=== PATIENT | female | born 1980 | race Caucasian/White ===

== ENCOUNTER 2017-02-17 15:41 | Emergency (ER) | payer BC ==
[2017-02-17 15:49] VITALS: BP 144/92; PULSE 77; RESP 18; TEMP 97.8
--- NOTE | 2017-02-17 16:02 | ED ---
General Adult HPI - General Chief complaint: Dental/Oral Stated complaint: ENT Time Seen by Provider: 02/17/17 15:57 Source: patient, RN notes reviewed Mode of arrival: ambulatory Limitations: no limitations - History of Present Illness Initial comments: Patient 36-year-old female who presents emergency room today with a chief complaint of increased swelling and pain to right lower jaw. She does admit to a bad tooth. States she seemed dentist in the past. States dentist is currently out of town. States she was on antibiotics several weeks ago. She states she been having increased pain that she started yesterday. Denies any other complaints or symptoms at this time. Patient denies any recent fever, chills, shortness of breath, chest pain, back pain, abdominal pain, nausea or vomiting, numbness or tingling, dysuria or hematuria, constipation or diarrhea, headaches or visual changes, or any other complaints. - Related Data Previous Rx's Medication Instructions Recorded Hydrocodone/Acetaminophen [[place] 1 each PO Q6HR PRN #10 tab 02/17/17 5-325] Penicillin V Potassium [Pen Vee K] 500 mg PO QID 10 Days 02/17/17 Allergies Allergy/AdvReac Type Severity Reaction Status Date / Time No Known Allergies Allergy Verified 02/17/17 15:50 Review of Systems ROS Statement: Those systems with pertinent positive or pertinent negative responses have been documented in the HPI. ROS Other: All systems not noted in ROS Statement are negative. Past Medical History Past Medical History: No Reported History History of Any Multi-Drug Resistant Organisms: None Reported Past Surgical History: Cholecystectomy, Hysterectomy Additional Past Surgical History / Comment(s): hand surgery Past Psychological History: No Psychological Hx Reported Smoking Status: Current every day smoker Past Alcohol Use History: None Reported Past Drug Use History: None Reported General Exam - General Exam Comments Initial Comments: General: The patient is awake and alert, in no distress, and does not appear acutely ill. Eye: Pupils are equal, round and reactive to light, extra-ocular movements are intact. No nystagmus. There is normal conjunctiva bilaterally. No signs of icterus. Ears, nose, mouth and throat: There are moist mucous membranes and no oral lesions. Uvula midline. Patient's also difficulty. Mild swelling to the right side of the lower jaw. Locally tender over the gumline right lower jaw between teeth #28 and 29. No obvious abscess to drain. Neck: The neck is supple, there is no tenderness or JVD. Cardiovascular: There is a regular rate and rhythm. No murmur, rub or gallop is appreciated. Respiratory: Lungs are clear to auscultation, respirations are non-labored, breath sounds are equal. No wheezes, stridor, rales, or rhonchi. Musculoskeletal: Normal ROM, no tenderness. Strength 5/5. Sensation intact. Pulses equal bilaterally 2+. Neurological: A&O x 3. CN II-XII intact, There are no obvious motor or sensory deficits. Coordination appears grossly intact. Speech is normal. Skin: Skin is warm and dry and no rashes or lesions are noted. Psychiatric: Cooperative, appropriate mood & affect, normal judgment. Limitations: no limitations Course Vital Signs 02/17/17 15:47 Temperature 97.8 F Pulse Rate 77 Respiratory 18 Rate Blood Pressure 144/92 O2 Sat by Pulse 99 Oximetry Medical Decision Making - Medical Decision Making Patient will be started on antibiotics given a short prescription of pain medication use and advised to follow-up with her dentist over the next 2 days. Disposition Clinical Impression: Dental abscess Disposition: HOME SELF-CARE Condition: Good Instructions: Dental Abscess (ED) Additional Instructions: Please continue Listerine gargles or salt water gargles as discussed. Please use antibiotic as prescribed and pain medication as needed. Please be aware that pain medication may make you drowsy. Please return to emergency room for any other concerns. Prescriptions: Hydrocodone/Acetaminophen [[place] 5-325] 1 each PO Q6HR PRN #10 tab PRN Reason: Pain Penicillin V Potassium [Pen Vee K] 500 mg PO QID 10 Days Time of Disposition: 16:01
== END 2017-02-17 16:05 | disposition home or self-care (01) ==
LOC: EC 15:41
DX: K04.7 Periapical abscess without sinus (principal); F17.200 Nicotine dependence, unspecified, uncomplicated
CPT/HCPCS: 99283

== ENCOUNTER 2017-06-02 12:50 | Emergency (ER) | payer BC ==
[2017-06-02] MEDS ORDERED: SODIUM CHLORIDE 0.9% 1,000 ML IV ONE (14:10)
[2017-06-02] MEDS ORDERED: KETOROLAC 30 MG/ML 1 ML VIAL IVP STA (14:10)
[2017-06-02] MEDS ORDERED: ONDANSETRON 4 MG/2 ML VIAL IVP STA (14:10)
--- NOTE | 2017-06-02 14:17 | ED ---
General Adult HPI - General Chief complaint: Abdominal Pain Stated complaint: Abd Pain Source: patient Mode of arrival: ambulatory Limitations: no limitations - History of Present Illness Initial comments: 36-year-old female with past medical history of kidney stones and cholecystectomy as well as incomplete hysterectomy presented for evaluation of right lower quadrant abdominal/pelvic pain. She states her symptoms started Friday and initially were in her right back/flank inconsistent with her previous kidney stones. Over the weekend her pain worsened and then migrated anteriorly to the abdomen. There is associated nausea without vomiting. There were no alleviating factors and her pain was exacerbated by palpation. She states she still has her right ovary and she had previously had ovarian cyst on the left but this feels nothing similar. She also states dysuria and increased urinary frequency but decreased volumes. She denies hematuria. - Related Data Home Medications Medication Instructions Recorded Confirmed Baclofen [Lioresal] 20 mg PO HS 06/02/17 06/02/17 Previous Rx's Medication Instructions Recorded HYDROcodone/APAP 5-325MG [[place] 1 - 2 tab PO Q6HR PRN #20 tab 06/02/17 5-325] Ondansetron HCl [Zofran] 4 mg PO Q8HR PRN #10 tablet 06/02/17 Allergies Allergy/AdvReac Type Severity Reaction Status Date / Time No Known Allergies Allergy Verified 06/02/17 13:29 Review of Systems ROS Statement: Those systems with pertinent positive or pertinent negative responses have been documented in the HPI. ROS Other: All systems not noted in ROS Statement are negative. Constitutional: Denies: fever, chills Eyes: Denies: eye pain, eye discharge, vision change ENT: Denies: ear pain, throat pain Respiratory: Denies: cough, dyspnea Cardiovascular: Denies: chest pain, palpitations Endocrine: Denies: fatigue, polydipsia, polyuria Gastrointestinal: Reports: abdominal pain, nausea. Denies: vomiting, diarrhea, constipation, hematemesis, melena Genitourinary: Reports: urgency, dysuria, frequency. Denies: hematuria, discharge, abnormal menses, dyspareunia Musculoskeletal: Reports: back pain, other (right flank pain). Denies: arthralgia, myalgia Skin: Denies: rash, lesions Neurological: Denies: headache, weakness Psychiatric: Denies: anxiety, depression Hematological/Lymphatic: Denies: easy bleeding, easy bruising Past Medical History Past Medical History: No Reported History History of Any Multi-Drug Resistant Organisms: None Reported Past Surgical History: Cholecystectomy, Hysterectomy Additional Past Surgical History / Comment(s): hand surgery Past Psychological History: No Psychological Hx Reported Smoking Status: Current every day smoker Past Alcohol Use History: None Reported Past Drug Use History: None Reported General Exam Limitations: no limitations General appearance: alert, in no apparent distress Head exam: Present: atraumatic, normocephalic, normal inspection Eye exam: Present: normal appearance, PERRL, EOMI. Absent: scleral icterus, conjunctival injection, periorbital swelling ENT exam: Present: normal exam, mucous membranes moist Neck exam: Present: normal inspection. Absent: tenderness, meningismus, lymphadenopathy Respiratory exam: Present: normal lung sounds bilaterally. Absent: respiratory distress, wheezes, rales, rhonchi, stridor Cardiovascular Exam: Present: regular rate, normal rhythm, normal heart sounds. Absent: systolic murmur, diastolic murmur, rubs, gallop, clicks GI/Abdominal exam: Present: soft, tenderness (RLQ), normal bowel sounds. Absent : distended, guarding, rebound, rigid Rectal exam: Present: deferred Extremities exam: Present: normal inspection, full ROM, normal capillary refill. Absent: tenderness, pedal edema, joint swelling, calf tenderness Back exam: Present: normal inspection Neurological exam: Present: alert, oriented X3, CN II-XII intact Psychiatric exam: Present: normal affect, normal mood Skin exam: Present: warm, dry, intact, normal color. Absent: rash Course Vital Signs 06/02/17 06/02/17 13:27 18:36 Temperature 97.5 F L 97.6 F Pulse Rate 77 78 Respiratory 18 16 Rate Blood Pressure 133/82 128/63 O2 Sat by Pulse 100 99 Oximetry Medical Decision Making - Medical Decision Making 36-year-old female with past medical history of kidney stones and hysterectomy with left oophorectomy presented for evaluation of right lower quadrant abdominal pain. Initial presentation on Friday with more consistent with her history of kidney stones however the pain migrated anteriorly to the abdomen and she states this has not happened before sending her previous medical conditions. On physical examination the patient appears to be in no apparent distress however she does have right lower quadrant tenderness. Abdomen is soft and without peritoneal signs of guarding, rigidity, or rebound. There is no CVA tenderness bilaterally. Concern for kidney stone and will obtain labs, CT renal stone, and provide pain control and Zofran. Labs revealed a mild leukocytosis however the remainder were without significant abnormality. CT renal stone showed no uropathy however there was an abnormal right ovarian or adnexal mass measuring 7.5 cm. Recommended ultrasound for rule out of ovarian torsion. Pelvic ultrasound showed a multi segmented cystic mass in the region of the right ovary that measures 7.5 x 3.6 x 5.3 cm. There is normal arterial wave form in the right ovarian artery and there is no evidence of torsion. The patient was reevaluated and had some improvement in her symptoms. She was informed of all results and through shared decision making it was determined that she would be discharged with instructions to follow-up with her primary care physician but to return to this facility if her symptoms should worsen or persist. The patient acknowledged an understanding of this information and agreed with this plan of care. - Lab Data Result diagrams: 06/02/17 14:25 06/02/17 14:25 Lab Results 06/02/17 06/02/17 06/02/17 Range/Units 14:25 14:25 14:25 WBC 12.4 H (3.8-10.6) k/uL RBC 5.00 (3.80-5.40) m/uL Hgb 14.9 (11.4-16.0) gm/dL Hct 44.2 (34.0-46.0) % MCV 88.5 (80.0-100.0) fL MCH 29.9 (25.0-35.0) pg MCHC 33.7 (31.0-37.0) g/dL RDW 14.6 (11.5-15.5) % Plt Count 243 (150-450) k/uL Neutrophils % 69 % Lymphocytes % 20 % Monocytes % 6 % Eosinophils % 4 % Basophils % 1 % Neutrophils # 8.5 H (1.3-7.7) k/uL Lymphocytes # 2.5 (1.0-4.8) k/uL Monocytes # 0.7 (0-1.0) k/uL Eosinophils # 0.4 (0-0.7) k/uL Basophils # 0.1 (0-0.2) k/uL Sodium 137 (137-145) mmol/L Potassium 4.1 (3.5-5.1) mmol/L Chloride 108 H (98-107) mmol/L Carbon Dioxide 21 L (22-30) mmol/L Anion Gap 8 mmol/L BUN 7 (7-17) mg/dL Creatinine 0.58 (0.52-1.04) mg/dL Est GFR (MDRD) Af Amer >60 (>60 ml/min/1.73 sqM) Est GFR (MDRD) Non-Af >60 (>60 ml/min/1.73 sqM) Glucose 101 H (74-99) mg/dL Calcium 8.9 (8.4-10.2) mg/dL Urine Color Yellow Urine Appearance Cloudy H (Clear) Urine pH 6.5 (5.0-8.0) Ur Specific [place] 1.008 (1.001-1.035) Urine Protein Negative (Negative) Urine Glucose (UA) Negative (Negative) Urine Ketones Negative (Negative) Urine Blood Negative (Negative) Urine Nitrite Negative (Negative) Urine Bilirubin Negative (Negative) Urine Urobilinogen <2.0 (<2.0) mg/dL Ur Leukocyte Esterase Negative (Negative) Urine RBC <1 (0-5) /hpf Urine WBC <1 (0-5) /hpf Ur Squamous Epith Cells 4 (0-4) /hpf Urine Bacteria Rare H (None) /hpf Urine Mucus Rare H (None) /hpf Disposition Clinical Impression: Ovarian cyst, Abdominal pain Disposition: HOME SELF-CARE Condition: Stable Instructions: Ovarian Cyst (ED) Additional Instructions: Please use medication as discussed. Please follow up with family doctor if symptoms have not improved over the next two days. Please return to the emergency room if your symptoms increase or worsen or for any other concerns. Prescriptions: HYDROcodone/APAP 5-325MG [[place] 5-325] 1 - 2 tab PO Q6HR PRN #20 tab PRN Reason: Analgesia Ondansetron HCl [Zofran] 4 mg PO Q8HR PRN #10 tablet PRN Reason: Nausea Referrals: Kirsh Moeller MD [STAFF PHYSICIAN] - 1-2 days Ghislaine France MD [STAFF PHYSICIAN] - 1-2 days Marisol Carrillo DO [Doctor of Osteopathic Medicine] - 1-2 days Time of Disposition: 18:22
[2017-06-02 14:44] LABS: Basophils # (A) 0.1 k/uL (0-0.2); Basophils % (A) 1 %; CH 30.6; CHCM 34.8; Eosinophils # (A) 0.4 k/uL (0-0.7); Eosinophils % (A) 4 %; HCT 44.2 % (34.0-46.0); HDW 2.41; HGB 14.9 gm/dL (11.4-16.0); Luc # (Auto) 0.15; Luc % (Auto) 1; Lymphocytes # (A) 2.5 k/uL (1.0-4.8); Lymphocytes % (A) 20 %; MCH 29.9 pg (25.0-35.0); MCHC 33.7 g/dL (31.0-37.0); MCV 88.5 fL (80.0-100.0); Mean Platelet Volume 8.7; Monocytes # (A) 0.7 k/uL (0-1.0); Monocytes % (A) 6 %; Neutrophils # (A) 8.5 k/uL (1.3-7.7); Neutrophils % (A) 69 %; RDW 14.6 % (11.5-15.5); WBC 12.4 k/uL (3.8-10.6); WBC (Perox) 11.83
[2017-06-02 14:50] LABS: Appearance,Urine Cloudy (Clear); Bacteria,Urine Rare /hpf; Bilirubin,Urine Negative (Negative); Glucose,Urine (UA) Negative (Negative); Ketones,Urine Negative (Negative); Leukocyte Esterase,Urine Negative (Negative); Mucus,Urine Rare /hpf; Nitrite,Urine Negative (Negative); PH, Urine 6.5 (5.0-8.0); Particle Count 2677; Protein,Urine Negative (Negative); RBC,Urine <1 /hpf (0-5); Specific Gravity,Urine 1.008 (1.001-1.035); Squamous Epithelial Cell,Urine 4 /hpf (0-4); UA Billing (MACRO vs. MICRO) MICRO; Urobilinogen,Urine <2.0 mg/dL (<2.0); WBC,Urine <1 /hpf (0-5)
[2017-06-02 14:52] LABS: Anion Gap 8 mmol/L; Blood Urea Nitrogen 7 mg/dL (7-17); Calcium 8.9 mg/dL (8.4-10.2); Carbon Dioxide 21 mmol/L (22-30); Chloride 108 mmol/L (98-107); Glucose 101 mg/dL (74-99); Non-African American GFR(MDRD) >60 (>60 ml/min/1.73 sqM); Potassium 4.1 mmol/L (3.5-5.1); Sodium 137 mmol/L (137-145)
--- NOTE | 2017-06-02 15:46 | CT ---
EXAMINATION TYPE: CT renal stones wo con DATE OF EXAM: 06/02/2017 HISTORY: Right lower quadrant pain. CT DLP: 845.90 mGycm. Automated Exposure Control for Dose Reduction was Utilized. TECHNIQUE: CT scan of the abdomen and pelvis is performed without oral or IV contrast. COMPARISON: NONE FINDINGS: Within the limitations of a non-contrast study, the following observations are made. LUNG BASES: No significant abnormality is appreciated. LIVER/GB: Liver is diffusely low dense consistent with fatty infiltration. Cholecystectomy clips are noted. PANCREAS: No significant abnormality is seen. SPLEEN: No significant abnormality is seen. ADRENALS: No significant abnormality is seen. KIDNEYS: No renal stones or hydronephrosis is evident bilaterally. BOWEL: Appendix is not suspiciously enlarged extending inferiorly from base of cecum. There is trace free fluid in the right infracolic gutter of uncertain etiology on coronal image 51. No significant s urrounding inflammatory change is present. Evaluation bowel is slightly suboptimal secondary to lack of enteric contrast. There is no suspicious small or large bowel dilatation seen. There are occasiona l colonic diverticula identified. There is 1.6 cm diverticulum along mesenteric medial surface and se cond portion of duodenum on axial image 51. GENITAL ORGANS: Uterus is surgically absent or markedly atrophic in appearance. There is abnormal rig ht ovarian or adnexal low dense with mild surrounding fat stranding anteriorly mass measuring 7.5 x 4 .3 cm on axial image 112. Normal-sized remnant left ovary is seen on axial image 109 anterior to exte rnal iliac vessels. LYMPH NODES: No greater than 1cm abdominal or pelvic lymph nodes are appreciated. OSSEOUS STRUCTURES: No significant abnormality is seen. OTHER: No significant additional abnormality is seen. IMPRESSION: 1. No renal stones or hydronephrosis is seen bilaterally. 2. Abnormal right ovarian or adnexal 7.5 cm mass in patient with pain, ovarian torsion needs to BE co nsidered as there is some adjacent fat stranding noted anteriorly. Clinical correlation and pelvic ul trasound follow-up is advised.
[2017-06-02] MEDS ORDERED: MORPHINE SULFATE 4 MG/ML SYRINGE IVP STA (16:22)
--- NOTE | 2017-06-02 17:56 | US ---
EXAMINATION TYPE: US pelvis complete transvag DATE OF EXAM: 06/02/2017 COMPARISON: NONE CLINICAL HISTORY: Pain / ro torsion. RLQ PAIN TECHNIQUE: Transvaginal (TV) and Transabdominal (TA) Date of LMP: 2012 EXAM MEASUREMENTS: Uterus: Surgically absent cm Endometrial Stripe: Surgically absent cm Right Ovary: 7.7 X 5.5 X 4.6 cm Left Ovary: Surgically absent cm PARTIAL HYSTERECTOMY 2012 1. Uterus: SURGICALLY ABSENT 2. Endometrium: Surgically absent 3. Right Ovary: ANECHOIC AREA VISUALZED WITH A SEPTATION MEASURING 7.5 X 5.3 X 3.6 CM 4. Left Ovary: Surgically absent Spectral, color and waveform doppler imaging shows good arterial and venous flow within the RIGHT O VARY; there is no evidence for ovarian torsion. 5. Bilateral Adnexa: wnl 6. Posterior cul-de-sac: wnl IMPRESSION: There is a multiseptated cystic mass in the region of the right ovary that measures 7.5 x 3.6 x 5.3 cm. There is normal arterial waveform in the right ovarian artery. There is no evidence of torsion. No free fluid.
[2017-06-02 18:37] VITALS: BP 128/63; PULSE 78; RESP 16; TEMP 97.6
== END 2017-06-02 18:36 | disposition home or self-care (01) ==
LOC: EC 12:50
DX: N83.201 Unspecified ovarian cyst, right side (principal); R11.0 Nausea; F17.200 Nicotine dependence, unspecified, uncomplicated; Z90.49 Acquired absence of other specified parts of digestive tract; Z90.711 Acquired absence of uterus with remaining cervical stump; Z90.721 Acquired absence of ovaries, unilateral; Z79.1 Long term (current) use of non-steroidal anti-inflammatories (NSAID)
CPT/HCPCS: 99284; 96374; 96375 ×2; 96361 ×4; 36415; 80048; 85025; 81001; 76856; 74150; J2270; J2405; J1885; 76830

== ENCOUNTER 2022-06-27 12:03 | Day surgery (SDC) | payer BC, OTHER ==
[2022-06-26 13:28] VITALS: BMI 28.5
[~2022-06-27 12:03] MED LIST: SODIUM CHLORIDE 0.9% 1,000 ML IV SCH
[2022-06-27] MEDS ORDERED: SODIUM CHLORIDE 0.9% 500 ML 500 ML IV ONE (12:40)
[2022-06-27 12:43] VITALS: BP 138/80; PULSE 72; RESP 16; TEMP 98.6
--- NOTE | 2022-07-01 15:51 | P.EPPROC ---
- EP Procedure Note Electrophysiology Procedure Note: Diagnosis Recurrent presyncope Twelve-lead EKG Sinus mechanism normal HI narrow QRS normal ST segments Normal QT interval No epsilon waves no delta waves Tilt table test Baseline blood pressure 133/74 mmHg pulse rate 75 beats a minute Patient was tilted upright at an angle of 70 per protocol As she was tilted upright she reported dizziness which resolved quickly There was an immediate drop in blood pressure 115/68 mmHg but it normalized once again and thereafter her blood pressure remained stable She did have nausea intermittently but there washeart rate or blood pressure change 2 is the end of the procedure she felt very heart for a few seconds and felt a little lightheaded but once again without any change in heart rate blood pressure She was then laid supine at the end of the procedure Impression Normal twelve-lead EKG Immediate drop in blood pressure upon assuming upright position with rapid recovery and no syncope No evidence for neurocardiogenic syncope
== END 2022-06-27 14:40 | disposition home or self-care (01) ==
LOC: CATHEP 12:03
PROVIDERS: ATTEND Internal Medicine Clinical Cardiac Electrophysiology
DX: R55 Syncope and collapse (principal); Z20.822 Contact with and (suspected) exposure to COVID-19; Z87.891 Personal history of nicotine dependence
CPT/HCPCS: 87635; 93660

== ENCOUNTER 2022-10-18 10:50 | Emergency (ER) | payer OTHER ==
[2022-10-18 11:04] VITALS: TEMP 98.7
--- NOTE | 2022-10-18 11:15 | ED ---
General Adult HPI - General Chief complaint: Upper Respiratory Infection Stated complaint: URI Time Seen by Provider: 10/18/22 11:05 Source: patient, RN notes reviewed Mode of arrival: ambulatory Limitations: no limitations - History of Present Illness Initial comments: 42-year-old female with no significant past medical history coming in to the emergency department with chief complaint of cough x 5 days. She notes accompanying symptoms of fever, chills, headache. He has been taking at home breathing treatments with mild relief. she admits to recent known RSV exposure. She is not vaccinated against COVID-19. His chest pain, palpitations, shortness of breath, abdominal pain, nausea, vomiting, diarrhea - Related Data Home Medications Medication Instructions Recorded Confirmed No Known Home Medications 06/26/22 06/26/22 Allergies Allergy/AdvReac Type Severity Reaction Status Date / Time No Known Allergies Allergy Verified 10/18/22 11:04 Review of Systems ROS Statement: Those systems with pertinent positive or pertinent negative responses have been documented in the HPI. ROS Other: All systems not noted in ROS Statement are negative. Past Medical History Past Medical History: Sleep Apnea/CPAP/BIPAP Additional Past Medical History / Comment(s): MIGRAINE HEADACHES, SEE DR STOVALL'S HISTORY AND PHYSICAL FOR CARDIAC HISTORY, History of Any Multi-Drug Resistant Organisms: None Reported Past Surgical History: Section, Cholecystectomy, Hysterectomy Additional Past Surgical History / Comment(s): BILATERAL -hand surgery C SECTION X6 Past Anesthesia/Blood Transfusion Reactions: No Reported Reaction Past Psychological History: Anxiety Smoking Status: Former smoker Past Alcohol Use History: None Reported Past Drug Use History: Marijuana - Past Family History Mother Family Medical History: Cancer Father Family Medical History: Cancer General Exam Limitations: no limitations General appearance: alert, in no apparent distress Head exam: Present: atraumatic, normocephalic, normal inspection Eye exam: Present: normal appearance, PERRL, EOMI. Absent: scleral icterus, conjunctival injection, periorbital swelling ENT exam: Present: normal exam, mucous membranes moist Neck exam: Present: normal inspection. Absent: tenderness, meningismus, lymphadenopathy Respiratory exam: Present: normal lung sounds bilaterally. Absent: respiratory distress, wheezes, rales, rhonchi, stridor Cardiovascular Exam: Present: regular rate, normal rhythm, normal heart sounds. Absent: systolic murmur, diastolic murmur, rubs, gallop, clicks GI/Abdominal exam: Present: soft, normal bowel sounds. Absent: distended, tenderness, guarding, rebound, rigid Extremities exam: Present: normal inspection, full ROM, normal capillary refill. Absent: tenderness, pedal edema, joint swelling, calf tenderness Back exam: Present: normal inspection Neurological exam: Present: alert, oriented X3, CN II-XII intact Psychiatric exam: Present: normal affect, normal mood Skin exam: Present: warm, dry, intact, normal color. Absent: rash Course Vital Signs 10/18/22 10/18/22 10/18/22 11:01 11:52 12:30 Temperature 98.7 F Pulse Rate 91 92 90 Respiratory 20 20 18 Rate Blood Pressure 152/88 147/84 O2 Sat by Pulse 97 97 96 Oximetry Medical Decision Making - Medical Decision Making 82-year-old female presenting to the emergency department for cough. Patient was seen and evaluated physical exam essentially unremarkable. RSV results positive. I Interpreted the following: For any consolidation or effusion. Discussed in detail the results with the patient return precautions discussed. Patient is agreeable to plan for discharge. I discussed the case with Dr. Matute, ECP agrees with plan for discharge - Lab Data Lab Results 10/18/22 Range/Units 11:05 Influenza Type A (PCR) Not Detected (Not Detectd) Influenza Type B (PCR) Not Detected (Not Detectd) RSV (PCR) Detected A (Not Detectd) SARS-CoV-2 (PCR) Not Detected (Not Detectd) Disposition Clinical Impression: RSV infection Disposition: HOME SELF-CARE Condition: Stable Instructions (If sedation given, give patient instructions): Upper Respiratory Infection (ED) Additional Instructions: He is attentive to the nearest emergency department if symptoms of cough or worsening shortness of breath. Is patient prescribed a controlled substance at d/c from ED?: No Referrals: Mia Ibarra MD [Primary Care Provider] - 1-2 days
--- NOTE | 2022-10-18 11:40 | XR ---
EXAMINATION TYPE: XR chest 2V DATE OF EXAM: 10/18/2022 COMPARISON: NONE HISTORY: Cough. TECHNIQUE: Frontal and lateral views of the chest are obtained. FINDINGS: There is no suspicious peripheral focal air space opacity, pleural effusion, or pneumothor ax seen. The cardiac silhouette size is within normal limits. The osseous structures are intact. C holecystectomy clips are seen. IMPRESSION: No acute pulmonary process.
[2022-10-18 12:31] VITALS: BP 147/84; PULSE 90; RESP 18
== END 2022-10-18 12:31 | disposition home or self-care (01) ==
LOC: EC 10:50
DX: R05.9 Cough, unspecified (principal); B97.4 Respiratory syncytial virus as the cause of diseases classified elsewhere; G47.30 Sleep apnea, unspecified; F41.9 Anxiety disorder, unspecified; F12.90 Cannabis use, unspecified, uncomplicated; Z87.891 Personal history of nicotine dependence; Z20.822 Contact with and (suspected) exposure to COVID-19
CPT/HCPCS: 71046; 87636; 99283

== ENCOUNTER 2025-05-21 17:06 | Emergency (ER) | payer OTHER ==
[2025-05-21 17:10] VITALS: TEMP 98.2
--- NOTE | 2025-05-21 17:19 | ED ---
Anxiety HPI - General Chief Complaint: Anxiety Stated Complaint: Chest pain Time Seen by Provider: 05/21/25 17:12 Source: patient, EMS, RN notes reviewed Mode of arrival: EMS Limitations: no limitations - History of Present Illness Initial Comments: 44-year-old female presents emergency department with chief complaint of palpitations anxiety. Patient was in the emergency ferment with her daughter who was patient of cardiac arrest. Patient states she feels very worked up, short of breath states she feels like she is, pass out. She has no known drug allergies no current medications. - Related Data Home Medications: Previous Rx's Medication Instructions Recorded LORazepam [Ativan] 1 mg PO TID 3 Days #9 tab 05/21/25 Allergies/Adverse Reactions: Allergies Allergy/AdvReac Type Severity Reaction Status Date / Time No Known Allergies Allergy Verified 05/21/25 17:10 Review of Systems ROS Statement: Those systems with pertinent positive or pertinent negative responses have been documented in the HPI. ROS Other: All systems not noted in ROS Statement are negative. Past Medical History Past Medical History: Sleep Apnea/CPAP/BIPAP Additional Past Medical History / Comment(s): MIGRAINE HEADACHES, SEE DR STOVALL'S HISTORY AND PHYSICAL FOR CARDIAC HISTORY, History of Any Multi-Drug Resistant Organisms: None Reported Past Surgical History: Section, Cholecystectomy, Hysterectomy Additional Past Surgical History / Comment(s): BILATERAL -hand surgery C SECTION X6 Past Anesthesia/Blood Transfusion Reactions: No Reported Reaction Past Psychological History: Anxiety Smoking Status: Former smoker Past Alcohol Use History: None Reported Past Drug Use History: Marijuana - Past Family History Mother Family Medical History: Cancer Father Family Medical History: Cancer General Exam Limitations: no limitations General appearance: alert, in no apparent distress, anxious Head exam: Present: atraumatic, normocephalic, normal inspection Eye exam: Present: normal appearance, PERRL, EOMI. Absent: scleral icterus, conjunctival injection, periorbital swelling ENT exam: Present: normal exam, mucous membranes moist Neck exam: Present: normal inspection, full ROM. Absent: tenderness, meningismus, lymphadenopathy Respiratory exam: Present: normal lung sounds bilaterally. Absent: respiratory distress, wheezes, rales, rhonchi, stridor Cardiovascular Exam: Present: regular rate, normal rhythm, normal heart sounds. Absent: systolic murmur, diastolic murmur, rubs, gallop, clicks Neurological exam: Present: alert, oriented X3, CN II-XII intact Psychiatric exam: Present: anxious Course Vital Signs 05/21/25 17:08 Temperature 98.2 F Pulse Rate 93 Respiratory 24 Rate Blood Pressure 138/91 O2 Sat by Pulse 98 Oximetry Medical Decision Making - Medical Decision Making Was pt. sent in by a medical professional or institution (, [facility]RI[facility], DISULFURIZER TENDER, urgent c are, hospital, or jail...) When possible be specific @ -No Did you speak to anyone other than the patient for history (EMS, parent, family, police, friend...)? What history was obtained from this source @ -No Did you review nursing and triage notes (agree or disagree)? Why? @ -I reviewed and agree with nursing and triage notes Were old charts reviewed (outside hosp., previous admission, EMS record, old EKG, old radiological studies, urgent care reports/EKG's, jail records)? Report findings @ -No old charts were reviewed Differential Diagnosis (chest pain, altered mental status, abdominal pain women, abdominal pain men, vaginal bleeding, weakness, fever, dyspnea, syncope, headache, dizziness, GI bleed, back pain, seizure, CVA, palpatations, mental health, musculoskeletal)? @ -Differential Palpitations Ventricular arrhythmias, atrial arrhythmias, myocardial infarction, anemia, thyrotoxicosis, electrolyte imbalance, hypokalemia, pulmonary embolism, pulmonary disease, drugs, alcohol, anxiety, stress.... This is not meant to be an all-inclusive list. EKG interpreted by me (3pts min.). @ -As above X-rays interpreted by me (1pt min.). @ -None done CT interpreted by me (1pt min.). @ -None done U/S interpreted by me (1pt. min.). @ -None done What testing was considered but not performed or refused? (CT, X-rays, U/S, labs)? Why? @ -None What meds were considered but not given or refused? Why? @ -None Did you discuss the management of the patient with other professionals (professionals i.e. BRIAN Wolff, DISULFURIZER TENDER, lab, RT, psych nurse, executive secretary social welfare, earthmoving labourer, teacher, army senior officer, case therapist)? Give summary @ -No Was smoking cessation discussed for >3mins.? @ -No Was critical care preformed (if so, how long)? @ -No Were there social determinants of health that impacted care today? How? (Homelessness, low income, unemployed, alcoholism, drug addiction, transportation, low edu. Level, literacy, decrease access to med. care, intermediate, rehab)? @ -No Was there de-escalation of care discussed even if they declined (Discuss DNR or withdrawal of care, Hospice)? DNR status @ -No What co-morbidities impacted this encounter? (DM, HTN, Smoking, COPD, CAD, Cancer, CVA, ARF, Chemo, Hep., AIDS, mental health diagnosis, sleep apnea, morbid obesity)? @ -None Was patient admitted / discharged? Hospital course, mention meds given and route, prescriptions, significant lab abnormalities, going to OR and other pertinent info. @ -Discharge patient presented for severe anxiety related to of her child. Patient is not suicidal homicidal. Patient discharged in stable condition Undiagnosed new problem with uncertain prognosis? @ -No Drug Therapy requiring intensive monitoring for toxicity (Heparin, Nitro, Insulin, Cardizem)? @ -No Were any procedures done? @ -No Diagnosis/symptom? @ -Panic attack, anxiety Acute, or Chronic, or Acute on Chronic? @ -Acute Uncomplicated (without systemic symptoms) or Complicated (systemic symptoms)? @ -complicated Side effects of treatment? @ -No Exacerbation, Progression, or Severe Exacerbation? @ -No Poses a threat to life or bodily function? How? (Chest pain, [place], DC, pneumonia, PE, COPD, DKA, ARF, appy, cholecystitis, CVA, Diverticulitis, Homicidal, Suicidal, threat to staff... and all critical care pts) @ -No - EKG Data -: EKG Interpreted by Me EKG Comments: EKG performed at 17: 37 sinus rhythm rate of 93 NH 122 QRS 84 QT/QTc 352/402 Disposition Clinical Impression: Panic attack, Acute anxiety Disposition: HOME SELF-CARE Condition: Stable Instructions (If sedation given, give patient instructions): Generalized Anxiety Disorder (ED) Additional Instructions: Please return to the Emergency Department if symptoms worsen or any other concerns. Prescriptions: LORazepam [Ativan] 1 mg PO TID 3 Days #9 tab Is patient prescribed a controlled substance at d/c from ED?: Yes When asked, does pt state using other controlled substances?: No If prescribed controlled substance>3 days was MAPS reviewed?: Prescribed <3 Days Referrals: Mia Ibarra MD [Primary Care Provider] - 1-2 days Time of Disposition: 18:35
[2025-05-21] MEDS: LORazepam 1 MG/0.5 ML VIAL IV STA (17:28)
[2025-05-21] MEDS: ONDANSETRON 4 MG/2 ML VIAL IVP STA (17:36)
[2025-05-21 18:46] VITALS: BP 126/86; PULSE 96; RESP 16
== END 2025-05-21 19:07 | disposition home or self-care (01) ==
LOC: EC 17:06
DX: F41.0 Panic disorder [episodic paroxysmal anxiety] (principal); F41.9 Anxiety disorder, unspecified; Z87.891 Personal history of nicotine dependence
CPT/HCPCS: 93005; 99283; 96374; 96375; J2060; J2405